=== PATIENT | male | born 1995 | race Two or more races ===

== ENCOUNTER 2024-12-25 14:12 | Emergency (ER) | payer OTHER ==
[~2024-12-25] VITALS: Ht 180.3 cm; Wt 81.6 kg
[~2024-12-25 14:12] MED LIST: CEFUROXIME500 MG PO; TRAM1TAB98 PO
[2024-12-25] MEDS ORDERED: KETOROLAC TROMETHAMINE 30 MG VIAL IM ONE (16:30)
== END 2024-12-25 18:59 ==
LOC: ER 14:14
DX: S52.125A Nondisplaced fracture of head of left radius, initial encounter for closed fracture (principal); V00.131A Fall from skateboard, initial encounter; Y93.89 Activity, other specified; Y92.89 Other specified places as the place of occurrence of the external cause; Y99.9 Unspecified external cause status; Z87.09 Personal history of other diseases of the respiratory system; M79.632 Pain in left forearm

== ENCOUNTER 2025-02-25 16:17 | Emergency (ER) | payer OTHER ==
[~2025-02-25] VITALS: Ht 180.3 cm; Wt 81.6 kg
== END 2025-02-25 20:23 | disposition home or self-care (01) ==
LOC: ER 16:29
DX: M25.522 Pain in left elbow (principal)